=== PATIENT | female | born 1990 | race Caucasian/White ===

== ENCOUNTER 2019-07-11 15:01 | Outpatient (CLI) | payer OTHER ==
--- NOTE | 2019-07-11 17:07 | RAD ---
CERVICAL SPINE 3 VIEWS: Date: 07/11/19 HISTORY: Neck pain. FINDINGS/IMPRESSION: There is loss of cervical lordosis with mild reversal. No fracture, subluxation, or bone destruction seen. POS: [facility]
== END 2019-07-11 15:02 | disposition home or self-care (01) ==
LOC: BICRAD 15:01
PROVIDERS: ATTEND Physician Assistant
DX: M54.2 Cervicalgia (principal)
CPT/HCPCS: 72040